=== PATIENT | male | born 1980 | race Caucasian/White ===

== ENCOUNTER 2017-06-09 22:38 | Emergency (ER) | payer MEDICAID, OTHER ==
[~2017-06-09] VITALS: Ht 152.4 cm; Wt 65.1 kg
[2017-06-09 22:42] VITALS: Ht 152.4 cm; Wt 65.1 kg
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
[2017-06-10] MEDS ORDERED: ACET500C5 PO (02:01)
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
== END 2017-06-10 02:27 | disposition home or self-care (01) ==
LOC: FTE 22:38
DX: S39.92XA Unspecified injury of lower back, initial encounter (principal); S19.9XXA Unspecified injury of neck, initial encounter; R07.9 Chest pain, unspecified; V43.53XA Car driver injured in collision with pick-up truck in traffic accident, initial encounter
CPT/HCPCS: 71010; 72040; 72072; 72100; Z7502

== ENCOUNTER 2017-12-04 18:39 | Emergency (ER) | END 2017-12-04 19:45 | disposition home or self-care (01) ==